=== PATIENT | male | born 1995 | race African-American/Black ===

== ENCOUNTER 2018-07-17 16:07 | Inpatient (IN) ==
[~2018-07-17 16:07] MED LIST: NS 1,000 ML IV ONE
--- NOTE | 2018-07-17 16:44 | Diag Imaging Result Doc PS360 ---
EXAM: ABDOMEN FLAT/UPRIGHT 07/17/2018 HISTORY: n/v, abdominal pain TECHNIQUE: Flat and upright abdomen COMMENT: There is gas and some fecal debris in the colon without evidence of dilatation. The stomach is not distended and the small bowel is not distended. There is no evidence organomegaly or mass. IMPRESSION: Nonspecific abdomen. Electronically signed by Shiva Padgett 07/17/2018 4:42 PM
[2018-07-17] MEDS: PHENERGAN IM PRN ×2 (17:35→21:14)
[2018-07-17 17:42] LABS: BASO# 0.05 X1000 (0.0-0.2); BASO% 0.4 % (0.0-0.8); EOS# 0.02 X1000 (0.0-0.7); EOS% 0.2 % (0.0-10.0); HEMATOCRIT 41.7 % (42.0-52.0); HEMOGLOBIN 14.4 g/dL (14.0-18.0); LYMPH# 2.25 X1000 (1.2-3.4); LYMPH% 18.7 % (20.5-51.1); MCHC 34.5 g/dL (33-37); MCV 84.1 FL (81-99); MPV 10.6 FL (7.4-10.4); NEUT# 9.09 X1000 (1.4-6.5); NEUT% 75.7 % (42.2-75.2); PLT 233 X1000 (130-400); RBC 4.96 XMIL (4.7-6.1); RDW 15.3 % (11.5-14.5); WBC 12.01 X1000 (4.8-10.8)
[2018-07-17] MEDS: OFIRMEV 1000 MG/ISOTONIC SOLN 1,000 MG/100 ML BOTTLE IV PRN (17:59)
[2018-07-17 18:32] LABS: AGAP 12; ALB/GLOB RATIO 2.3; ALBUMIN 4.5 g/dL (3.5-5.0); ALKALINE PHOSPHATASE 57 U/L (32-122); BUN 8 mg/dL (8-22); CALCIUM 9.5 mg/dL (8.8-10.2); CHLORIDE 102 mmol/L (98-107); COSMO 279; ESTIMATED GFR > 60; GLUCOSE 87 mg/dL (70-104); GOT 14 U/L (10-34); GPT 18 U/L (10-44); SODIUM 141 mmol/L (136-145); TCO2 27 mmol/L (25-35); TOTAL BILIRUBIN 0.66 mg/dL (0.20-1.00); TOTAL PROTEIN 6.5 g/dL (6.3-8.3)
[2018-07-17] MEDS: NS 1,000 ML IV SCH (22:48)
[2018-07-18] MEDS: PHENERGAN IV PRN ×6 (01:21→21:34)
[2018-07-18] MEDS: OFIRMEV 1000 MG/ISOTONIC SOLN 1,000 MG/100 ML BOTTLE IV PRN ×4 (03:52→23:56)
[2018-07-18] MEDS: SODIUM CHLORIDE 0.9% INJ PRN ×3 (08:53→21:34)
[2018-07-18] MEDS: NS 1,000 ML IV SCH (10:02)
[2018-07-18] MEDS: PROTONIX IV SCH ×2 (12:45→23:56)
[2018-07-18] MEDS: SODIUM CHLORIDE 0.9% INJ SCH ×3 (12:45→23:56)
--- NOTE | 2018-07-18 12:45 | Diag Imaging Result Doc PS360 ---
EXAM: US GB < RUQ (LIMITED) 07/18/2018 HISTORY: abdominal pain, n/v TECHNIQUE: Right upper quadrant ultrasound COMMENT: The pancreatic head and body as well as the aorta and inferior vena cava are normal in appearance. The liver is unremarkable. There is antegrade flow in the portal vein. The right kidney is without evidence of hydronephrosis or mass. The gallbladder is clear and nontender. There is no evidence of biliary dilatation. The common bile duct measures less than 3 mm. IMPRESSION: No evidence of acute disease. Electronically signed by Shiva Padgett 07/18/2018 12:42 PM
[2018-07-18] MEDS: DULCOLAX PR ONE ×2 (13:05→13:11)
[2018-07-18] MEDS ORDERED: FLEET MINERAL OIL ENEMA PR ONE (13:12)
--- NOTE | 2018-07-18 13:24 | GASTROENTEROLOGY CONSULTATION ---
DATE: 07/18/2018 ATTENDING PHYSICIAN: Dr. Chery. PRIMARY CARE DOCTOR: Dr. Dago Zambrano. REASON FOR CONSULTATION: Nausea and vomiting. HISTORY OF PRESENT ILLNESS: Mr. Dewitt is a 22-year-old male who is known to our practice. The patient has been in out of the hospital since last March. The patient had been losing weight, he has lost 100 pounds in 1 year. Going back to 03/30/2018, patient had bowel obstruction. He had a diagnostic laparoscopy which was converted to open laparotomy and he was found to have 4 areas of small bowel to small bowel intussusception that were easily reducible. There were no obvious lead points of pathological lesions identified by Dr. Chery. Patient continued to have ongoing symptoms, he continued to lose weight. He saw us as an outpatient in the clinic. We did an EGD and a colonoscopy. We will try to obtain records. I was able to pull up the records on our EMR. The EGD showed evidence of 1 cm hiatal hernia and there was evidence of gastritis in the stomach. The duodenum appeared normal. The terminal ileum was normal and there was stool in the colon. There were grade 2 internal hemorrhoids. There was no evidence of any colitis in the colon. There was evidence of lymphoid hyperplasia in the terminal ileum. The biopsies were done which showed chronic superficial gastritis without hemorrhage, negative H pylori. The patient was subsequently seen on 07/16/2018 with similar complaints of abdominal pain, nausea, vomiting, not able to keep anything down. He had just returned to the ER at [facility] where he had imaging done. That CT scan from 07/12/2018 did not see any visible intussusception. There was no bowel obstruction noted. The patient has not been able to keep anything down and was admitted to the hospital yesterday. On admission, he had an abdominal x-ray which showed nonspecific abdomen. There is gas and some fecal debris in the colon without evidence of dilation. PAST MEDICAL HISTORY: 1. Intussusception on 03/30/2018. 2. Weight loss. PAST SURGICAL HISTORY: 1. Laparotomy on 03/30/2018 with intussusception identified. 2. EGD and colonoscopy done in June 2018 showed gastritis and constipation. ALLERGIES: No known drug allergies. SOCIAL HISTORY: Smokes half a pack a day. He drinks alcohol occasionally. He works at [employer]. FAMILY HISTORY: Reviewed and noncontributory. MEDICATIONS IN THE HOSPITAL: 1. Normal saline 100 mL/hour. 2. Tylenol IV q.6 hours. 3. Phenergan every 4 hours and he is n.p.o. REVIEW OF SYSTEMS: Denies any fevers, rigors, chills, chest pain, shortness of breath, dyspnea. Denies any vomiting blood. Does have chronic dry heaving. He has constipation. He denies any neurologic complaints. Denies any blood in the stools. PHYSICAL EXAMINATION: Vital signs: Temperature 98.2 degrees, pulse rate 56, respiratory 20, blood pressure 125/69, saturating 100% room air. Body weight of 157 pounds, BMI 21.9 kg/m2. General appearance: Thinly built, lying in bed, in no acute distress. HEENT: No pallor. No icterus. Pupils equal, reactive to light. Neck: Supple. Abdomen: Soft, nondistended. No guarding or rebound. Extremities: No cyanosis, clubbing, edema. Neurologic: Alert, awake, oriented x3. LABORATORY DATA: Hemoglobin and hematocrit is 14.4 and 41.7, white count of 12.01, platelet count of 233,000. Sodium 141, potassium 4, chloride 102, bicarb 27, anion gap 12, BUN of 8, creatinine 1, glucose of 87, calcium 9.5. Total bilirubin is 0.65. AST 14, ALT 18, alkaline phosphatase 57. albumin of 4.5. IMAGIN. Abdominal x-ray as described in the HPI. 2. Last CT at [facility] described in HPI. IMPRESSION: 1. Intractable nausea and vomiting. 2. Abdominal pain. 3. Weight loss of approximately 100 pound in the last 1 year. 4. Constipation. 5. Mild leukocytosis. RECOMMENDATIONS: 1. We will continue with n.p.o. Continue IV fluids. Continue IV antiemetics. We will start him on Protonix b.i.d. We will start him on Dulcolax b.i.d. 2. We will follow up on the results of small bowel series. 3. He is also ordered for ultrasound of the abdomen. 4. We will check a urine tox screen. 5. The patient may need video capsule, but the danger video capsule that it can get retained/obstructed at the site of potential intussusception and may need emergency surgery. This can be done at [facility] or [facility]. We will also check a urine for porphyrin level to evaluate for any consideration for porphyria-AIP. The above plans discussed with the patient's family at bedside. All questions answered. Please call us with any further questions. I also spoke with Dr. Chery. We will follow along. cc: MD Roosevelt Vee MD [facility]
[2018-07-18 13:34] LABS: UR AMPHETAMINES QUAL NONE DETECTED (NONE DETECT); UR BARBITUATES QUAL NONE DETECTED (NONE DETECT); UR BENZODIAZEPIN QUAL NONE DETECTED (NONE DETECT); UR CANNABINOIDS QUAL NONE DETECTED (NONE DETECT); UR COCAINE QUAL NONE DETECTED (NONE DETECT); UR METHADONE QUAL NONE DETECTED (NONE DETECT); UR OPIATES QUAL NONE DETECTED (NONE DETECT); UR OXYCODONE QUAL NONE DETECTED (NONE DETECT); UR PCP QUAL NONE DETECTED (NONE DETECT)
--- NOTE | 2018-07-18 13:40 | Diag Imaging Result Doc PS360 ---
SMALL BOWEL SERIES ONLY - 07/18/2018 INDICATION: intractable n/v, pain TECHNIQUE: 14 images were obtained COMPARISON: 07/17/2018, 07/13/2018 FINDINGS: The brake coupler dinkey exam is normal. No constipation. There was good progress of contrast throughout the small bowel, reaching the colon by about two hours. By three hours the contrast filled the colon. On real-time imaging, there is normal peristalsis of the small bowel. No evidence of obstruction or stricture. IMPRESSION: Negative exam. Electronically signed by Leonidas Williamson 07/18/2018 1:38 PM
--- NOTE | 2018-07-18 14:56 | GENERAL SURGERY PROGRESS NOTE ---
DATE: 07/18/2018 SUBJECTIVE: The patient has had several episodes of nausea and vomiting overnight and this morning. He continues to have some abdominal discomfort, nothing severe. OBJECTIVE: Vital signs: T-max 99.9 yesterday evening, currently 98.5. Vital signs stable. General: He is awake, alert, and oriented x3. No acute distress. Gastrointestinal: Soft, nontender, nondistended. No organomegaly or mass. Good bowel sounds. LABORATORY: White blood cell count 12, hemoglobin 14, hematocrit 41. Electrolytes reviewed and unremarkable. IMAGING: Abdominal x-ray last night showed a nonspecific abdomen. His small bowel follow-through today looks normal. Abdominal ultrasound today was normal. ASSESSMENT AND PLAN: A 22-year-old male with intractable nausea, vomiting, and abdominal pain of unclear etiology. He does not appear to have a mechanical small-bowel obstruction or overt signs of infection. We will order a HIDA scan in the morning to check for severe biliary dyskinesia. DR. Glass is also consulted to assist. cc: Roosevelt Chery MD
[2018-07-18] MEDS ORDERED: NICODERM PATCH TD ONE (20:58)
[2018-07-18] MEDS: MILK OF MAGNESIA PO SCH (21:33)
[2018-07-18] MEDS: NICODERM PATCH TD SCH (21:35)
[2018-07-19] MEDS: PHENERGAN IV PRN ×4 (02:26→17:30)
[2018-07-19] MEDS: SODIUM CHLORIDE 0.9% INJ PRN (02:26)
[2018-07-19] MEDS: NS 1,000 ML IV SCH ×2 (02:27→12:39)
--- NOTE | 2018-07-19 08:56 | Diag Imaging Result Doc PS360 ---
EXAM: HIDA SCAN W/ EJECTION FRACTION 07/19/2018 HISTORY: n/v, abdominal pain TECHNIQUE: Hepatobiliary scan with ejection fraction, 5.4 mCi of technetium 99m Choletec. COMMENT: There is activity in the gallbladder by at least six minutes. There is a large amount of activity seen in the gastric fundus subsequently. There is activity in the small bowel at about the same time. Following fatty meal ministration the gallbladder ejects 40% of the activity. There was considerable patient motion and vomiting during the examination. IMPRESSION: No evidence of biliary obstruction or cholecystitis. Severe gastric bile reflux. Electronically signed by Shiva Padgett 07/19/2018 8:53 AM
[2018-07-19] MEDS: OFIRMEV 1000 MG/ISOTONIC SOLN 1,000 MG/100 ML BOTTLE IV PRN ×2 (09:05→17:30)
[2018-07-19] MEDS: NICODERM PATCH TD SCH (09:06)
[2018-07-19] MEDS: MILK OF MAGNESIA PO SCH (09:06)
[2018-07-19] MEDS: SODIUM CHLORIDE 0.9% INJ SCH (12:39)
[2018-07-19] MEDS: PROTONIX IV SCH (12:39)
[2018-07-19 14:54] VITALS: BP 140/92
[2018-07-19] MEDS ORDERED: LIPOSYN 20% 500 ML IV SCH (15:45)
[2018-07-19] MEDS ORDERED: CLINIMIX E 4.25%-5% SOLUTION 1,000 ML IV SCH (15:45)
--- NOTE | 2018-07-19 19:20 | GENERAL SURGERY PROGRESS NOTE ---
DATE: 07/19/2018 SUBJECTIVE: The patient continues to have frequent episodes of nausea and vomiting after almost anything that he puts in his mouth. He had a normal ultrasound yesterday of the gallbladder and a normal small bowel follow-through yesterday. His HIDA scan this morning did show an ejection fraction of 40% and some bile reflux. OBJECTIVE: Vital signs: He is afebrile. Vital signs are stable. General: He is awake, alert, oriented x4 in no acute distress. Gastrointestinal: Soft, nontender, nondistended. ASSESSMENT AND PLAN: A 22-year-old male with intractable nausea, vomiting, abdominal pain of unclear etiology, possible biliary dyskinesia, possible gastroparesis. There is also a history of intussusception, although that has not been demonstrated on any imaging so far this admission. At this point, we are going to see how he does over the weekend with diet. I will start him on some Clinimix for nutrition. If he does not improve, then I am planning a gastric emptying study on Sunday. If that is negative, then laparoscopic cholecystectomy next week. If he continues to have trouble then future for capsule endoscopy. cc: Roosevelt Chery MD
--- NOTE | 2018-07-19 19:59 | GENERAL SURGERY PROGRESS NOTE ---
DATE: 07/19/2018 SUBJECTIVE: The patient continues to have some episodes of abdominal pain, but multiple episodes of nausea and vomiting. He had a continues to have trouble keeping anything down. OBJECTIVE: He is afebrile. Vital signs are stable. General: He is awake and alert, oriented x3, in no acute distress. Cardiovascular: Regular rate and rhythm. Respiratory: No work of breathing. Gastrointestinal: Soft, nontender, nondistended. IMAGING: The HIDA scan this morning shows an ejection fraction of 40%, as well as bile reflux into the stomach. ASSESSMENT AND PLAN: A 22-year-old male with continued intractable nausea and vomiting and some abdominal pain. There is a question of biliary dyskinesia; however, it is unclear to me that this is his source for symptoms. I am also concerned about gastroparesis. My plan is to get a gastric emptying study on Sunday. If that is negative, then proceed with laparoscopic cholecystectomy. Future tests include capsule endoscopy as an outpatient if he continues to have difficulties. For the time being, he still is complaining of not being able to keep anything down by mouth, so we will continue with hydration and start Clinimix for parenteral nutrition. If his symptoms improve to the point that he is without pain, or at least with minimal pain, and he is able to keep liquids down without vomiting for at least 12 hours, then I think he could be discharged over the weekend for outpatient follow-up in my office. cc: Roosevelt Chery MD
== END 2018-07-19 18:48 | disposition left against medical advice (07) | DRG 392 ==
LOC: DIRADM → 4N 16:07
PROVIDERS: ADMIT Surgery; ATTEND Surgery
CPT/HCPCS: 74019; 74020; 74250; 76705; 78227; 80053; 80101; 80301; 80307; 80324; 80345; 80346; 80353; 80358; 80361; 80365; 83992; 84110; 85025; A9270; A9537; C9113; G0431; G0434; G0479; G0480; J0131; J2550; J7030; S0164

== ENCOUNTER 2018-11-27 14:02 | Observation (INO) ==
[2018-11-27] MEDS ORDERED: DILAUDID IV PRN ×2 (14:49→15:43)
[2018-11-27] MEDS ORDERED: TYLENOL PO PRN (15:43)
[2018-11-27] MEDS ORDERED: ZOFRAN IV PRN (15:43)
[2018-11-27] MEDS ORDERED: NS 1,000 ML IV SCH (15:45)
[2018-11-27 16:53] VITALS: BP 124/70
[2018-11-27 17:07] LABS: INR 1.07; PROTIME 14.1 Seconds (11.0-16.0)
[2018-11-27 17:08] LABS: BASO# 0.01 X1000 (0.0-0.2); BASO% 0.1 % (0.0-0.8); HEMATOCRIT 44.4 % (42.0-52.0); HEMOGLOBIN 14.8 g/dL (14.0-18.0); LYMPH# 0.83 X1000 (1.2-3.4); LYMPH% 7.7 % (20.5-51.1); MCH 28.5 PG (27-31); MCHC 33.3 g/dL (33-37); MCV 85.4 FL (81-99); MONO# 0.21 X1000 (0.11-0.59); MPV 10.7 FL (7.4-10.4); NEUT# 9.68 X1000 (1.4-6.5); NEUT% 90.2 % (42.2-75.2); PLT 216 X1000 (130-400); PTT 26.6 Seconds (22.3-41.8); RDW 15.7 % (11.5-14.5); WBC 10.73 X1000 (4.8-10.8)
[2018-11-27 17:29] LABS: LYMPHS 11 % (21-51); MONO 1 % (1-9); SEGS 88 % (42-75)
[2018-11-27 17:39] LABS: AGAP 13; ALB/GLOB RATIO 1.8; ALBUMIN 4.6 g/dL (3.5-5.0); ALKALINE PHOSPHATASE 80 U/L (32-122); BUN 8 mg/dL (8-22); CALCIUM 9.7 mg/dL (8.8-10.2); CHLORIDE 107 mmol/L (98-107); COSMO 285; CREATININE 0.7 mg/dL (0.7-1.2); ESTIMATED GFR > 60; GLUCOSE 120 mg/dL (70-104); GOT 13 U/L (10-34); GPT 13 U/L (10-44); MAGNESIUM 1.8 mg/dL (1.5-2.7); SODIUM 143 mmol/L (136-145); TCO2 23 mmol/L (25-35); TOTAL BILIRUBIN 0.65 mg/dL (0.20-1.00); TOTAL PROTEIN 7.2 g/dL (6.3-8.3)
--- NOTE | 2018-11-27 18:06 | HISTORY AND PHYSICAL ---
HISTORY: Mr. Dewitt who is a 23-year-old who presented yesterday. This is on 11/27. Yesterday, he developed abdominal pain, nausea and vomiting. He had been in the hospital I think back in March for introsusception, and had surgery per Dr. Storey. He has had a couple episodes of nausea and abdominal pain, but at this time was more tense. The CT apparently showed more introsusception. He has really no other significant past medical history. He had his gallbladder out I believe in July. FAMILY HISTORY: No history of heart disease, renal or pulmonary disease. SOCIAL HISTORY: He is single. Denies alcohol. He does smoke. MEDICATIONS: The only medication he is on is omeprazole and MiraLAX. REVIEW OF SYSTEMS: General: No fever or chills. HEENT: No change in visual or hearing acuity. Respiratory: No increased work of breathing or dyspnea. Cardiovascular: No chest pain or tachy palpitation GI/: No gross hematuria or dysuria. Musculoskeletal/Neurologic: No significant complaints.. Endocrinologic/Hematologic: No significant history. PHYSICAL EXAMINATION: VITAL SIGNS: Temperature 97.8 degrees, pulse 43, respirations 20, and blood pressure 151/75. HEENT: Pupils are equal and round. No distended neck veins. LUNGS: Clear in all lung knight. CARDIOVASCULAR: Regular rhythm and rate without murmur or S3. ABDOMEN: Soft. SKIN: Warm and dry. DIAGNOSTIC: The CT scan of his abdomen and pelvis, nonspecific intrahepatic periportal edema that is also seen in several previous studies. Trace nonspecific pelvic free fluid that has been seen on previous studies. Grossly unremarkable otherwise. His lab is pending at this time. We will check a Chem 22, CBC and magnesium, B12, folate, T4 and TSH. IMPRESSION AND PLAN: We will ask Dr. Storey to evaluate as well. I will go ahead and put him on some empiric antibiotics using Zosyn 3.375 g IV q.6. His current medications, he is on Restoril 30 mg at bedtime and Trintellix 10 mg at bedtime. cc: Clement Palma MD
--- NOTE | 2018-11-27 18:27 | GENERAL SURGERY CONSULTATION ---
DATE: 11/27/2018 REASON FOR CONSULTATION: Intussusception. HISTORY OF PRESENT ILLNESS: This is a 23-year-old male known to me from prior intussusception. He underwent diagnostic laparoscopy in March of last year, with findings of multiple synchronous idiopathic intussusceptions that were easily reduced. No pathologic lesions were identified on laparotomy. Since that time he has had several more episodes of crampy abdominal pain which have resolved without an operation. He has had a colonoscopy by Dr. Glass, which was apparently negative. He has had a small-bowel followthrough x-ray series in July of this year which was negative. He has had [address] scans at our facility since his operation, which were negative for intussusception. He was lost to followup with me as an outpatient. He apparently had been scheduled for capsule endoscopy in [place] about a month ago, but was unable to complete that test because the facility was out of the necessary equipment; however, no followup or rescheduling of that test was done. He began having crampy generalized abdominal pain last night. This morning it got worse and he presented to the emergency room in [facility]. A CT scan there was done which demonstrated intussusception but no small-bowel obstruction. He was transferred to our facility for further evaluation and care, and I was consulted. Currently the patient says he remains in abdominal pain, but it is relieved with Dilaudid. He has nausea and has been vomiting, but that is relieved with Zofran or Phenergan. His last bowel movement was yesterday and was normal. PAST MEDICAL HISTORY: Idiopathic small-bowel intussusception. PAST SURGICAL HISTORY: Diagnostic laparoscopy and laparotomy for the intussusception, laparoscopic cholecystectomy. HOME MEDICATIONS: None. ALLERGIES: Morphine. SOCIAL HISTORY: He has a history of smoking a half pack per day, and alcohol occasionally. FAMILY HISTORY: Reviewed and noncontributory. REVIEW OF SYSTEMS: Ten organ systems were reviewed and negative except as noted above. PHYSICAL EXAMINATION: Temperature 97.8 degrees, pulse 45, respirations 18, blood pressure 124/70, O2 saturation 100%. Of note, bradycardia has been present on previous admissions and is apparently asymptomatic.General: He is a well-developed, well-nourished male in no distress who looks his stated age. He is nontoxic-appearing. HEENT: Normocephalic, atraumatic. Extraocular muscles intact. Pupils equal, round, reactive to light. Sclerae anicteric. Moist mucous membranes. Hearing grossly normal. Neck: Supple. No thyromegaly. Lymphatic: No cervical, supraclavicular or periumbilical lymph nodes appreciated. CV: Regular rate and rhythm. Respiratory: Bilateral breath sounds. No work of breathing. Gastrointestinal: Soft, nondistended. No organomegaly or mass. Well-healed incisions. He is mildly tender diffusely without rebound or guarding. No mass is appreciated. No hernias are appreciated. Extremities: No clubbing, cyanosis or edema. Skin: Warm and dry. No rash. Musculoskeletal: Moves all extremities equally and well. LABORATORY DATA: White blood cell count 10.7, hemoglobin 14.8, hematocrit 44.4, platelet count 216,000. Complete metabolic profile reviewed and unremarkable. IMAGING: A CT scan of the abdomen and pelvis from outside hospital performed this morning was reviewed by me, and it does indeed show a small-bowel intussusception. There is no evidence of free fluid, free air or dilation of the bowel to go along with an obstruction. ASSESSMENT AND PLAN: A 23-year-old male with recurrent small-bowel intussusception of unknown etiology. He does not have any peritoneal signs at this time. As I previously discussed with him, I think we should be cautious about reoperating, given his previous findings and the likelihood of benign etiology. My plan was to obtain a small-bowel followthrough tomorrow, and if negative and his symptoms improved, then discharge him for outpatient capsule endoscopy as he had previously planned; however, if his small-bowel followthrough showed obstruction or intussusception and his symptoms persisted, then we would plan repeat laparoscopy, possible laparotomy. When I went back to talk to the patient about this, however, he had left the hospital on his own. cc: Roosevelt Chery MD
[2018-11-27] MEDS ORDERED: RESTORIL PO SCH (21:00)
[2018-11-28] MEDS ORDERED: TRINTELLIX PO SCH (09:00)
--- NOTE | 2018-12-13 14:54 | DISCHARGE SUMMARY ---
ADMISSION DATE: 11/27/2018 DISCHARGE DATE: 11/27/2018 HOSPITAL COURSE: A 23-year-old, who had developed some abdominal pain, nausea, vomiting. He had been in the hospital back in March for intussusception, and had surgery I believe for Dr. Chery. Had a couple episodes of nausea and pain, and apparently there were more than 2 or 3 areas of intussusception. He presents again with pain and discomfort. CT of his abdomen and pelvis was reported as nonspecific. The abdominal CT done on 12/02 questionable ileal intussusception. There is no evidence of acute disease visualized in a portion of the chest. The liver, spleen, adrenal glands and kidneys within normal limits. The pancreas is unremarkable. No evidence of bowel obstruction. There is very little fat of any kind in the mesentery or intraperitoneal region. With oral contrast, there is a questionable focus of intussusception in the anterior right pelvis. There is similar appearance in the left side of the pelvis on the previous study in retrospect, but does not appear to be producing any type of obstruction. The patient was upset. I think he is upset that we were not going to pursue surgery at this time. He seemed to get some relief and was comfortable, but wanted to go to [place] and wanted to leave the hospital. So, he asked to be discharged and we discharged him. As far as his home medications, he did not bring any medications with him, but he was on Bentyl 20 mg b.i.d., and he was on his Restoril 30 mg at bedtime, Trintellix 10 mg at bedtime, and had Zofran for nausea. cc: Clement Palma MD
== END 2018-11-27 17:29 | disposition home or self-care (01) ==
LOC: SUATTDRO 14:02 → INTOOBSV 14:02 → DIRADM 14:02 → 4N 14:14
PROVIDERS: ATTEND Emergency Medicine